=== PATIENT | female | born 1950 | race Asian ===

== ENCOUNTER 2024-06-05 15:06 | Inpatient (IN) | payer SELFPAY ==
[~2024-06-05] VITALS: Ht 162.6 cm; Wt 64.9 kg
[2024-06-05] MEDS ORDERED: TETANUS, DIPHTHERIA, PERTUSSIS VAC/PF 0.5ML (>10YR OLD) IM ONE (16:15)
[2024-06-05] MEDS: ACETAMINOPHEN 325MG TABLET PO STA (16:49)
[2024-06-05] MEDS: SODIUM CHLORIDE 0.9% 1,000 ML IV ONE (16:49)
[2024-06-05] MEDS: TETANUS, DIPHTHERIA, PERTUSSIS VAC/PF 0.5ML (>10YR OLD) IM ONE (16:49)
[2024-06-05 16:53] LABS: CHLORIDE 102 mEq/L (98-107); SODIUM 134 mEq/L (136-145)
[2024-06-05 16:54] LABS: CALCIUM 9.3 mg/dL (8.7-10.4); CARBON DIOXIDE 23 mEq/L (21-32)
[2024-06-05 16:59] LABS: CREATININE 0.7 mg/dL (0.6-1.0); GLUCOSE 160 mg/dL (70-105); TROPONIN I HIGH SENSITIVITY 4 ng/L (3.0-34); UREA NITROGEN BLOOD 7 mg/dL (9-23)
[2024-06-05 17:01] LABS: ALANINE AMINOTRANSFERASE 15 IU/L (10-49); ALBUMIN 4.5 g/dL (3.2-4.8); ASPARTATE AMINOTRANSFERASE 27 IU/L (<34); BASOPHILS % 0.4 % (0.0-2.0); BILIRUBIN TOTAL 0.5 mg/dL (0.1-1.0); EOSINOPHILS % 2.7 % (0.0-5.0); HEMATOCRIT. 43.6 % (36.0-48.0); HEMOGLOBIN. 14.3 g/dL (12.0-16.0); LYMPHOCYTES % 20.4 % (20.0-50.0); MEAN CORPUSCULAR HEMOGLOBIN 29.8 pg (28.0-32.0); MEAN CORPUSCULAR HGB CONC 32.8 g/dL (31.0-37.0); MEAN CORPUSCULAR VOLUME 90.8 fL (81.0-99.0); MEAN PLATELET VOLUME 6.8 fl (7.4-10.4); MONOCYTES % 6.2 % (2.0-8.0); NEUTROPHILS % 70.3 % (40.0-76.0); PLATELET 234 x1000/uL (130-400); RED CELL DISTRIBUTION WIDTH 13.8 % (11.6-14.6); WHITE BLOOD COUNT 7.3 x1000/uL (4.5-11.0)
[2024-06-05 17:02] LABS: PROTEIN TOTAL 7.5 g/dL (6.0-8.3)
[2024-06-05 17:03] LABS: PARTIAL THROMBOPLASTIN TIME 25.5 sec (23.4-31.0); PROTHROMBIN TIME 10.8 sec (9.6-11.0)
[2024-06-05 23:30] VITALS: BP 137/80; PULSE 119; RESP 18; TEMP 98.1
[2024-06-06 08:00] VITALS: BP 134/74; PULSE 103; RESP 18; TEMP 97.3
[2024-06-06] MEDS ORDERED: CLONIDINE 0.1MG TABLET PO PRN (11:00)
[2024-06-06] MEDS ORDERED: ACETAMINOPHEN 325MG TABLET PO PRN ×2 (11:00)
[2024-06-06] MEDS: ENOXAPARIN 40MG/0.4ML SYR SUBCUT SCH (11:00)
[2024-06-06] MEDS ORDERED: DOCUSATE SODIUM 100MG CAPSULE PO PRN (11:00)
[2024-06-06] MEDS ORDERED: ONDANSETRON HCL 4MG/2ML INJ IV PRN (11:00)
[2024-06-06 12:00] VITALS: BP 144/81; PULSE 98; RESP 18; TEMP 97.3
[2024-06-06] MEDS: MVI, ADULT NO.1 10 ML, FOLIC ACID 1 MG, THIAMINE HCL 100 MG in SODIUM CHLORIDE 0.9% 1,0... IV SCH (12:58)
[2024-06-06 16:00] VITALS: BP 126/66; PULSE 89; RESP 18; TEMP 97.3
[2024-06-06 20:00] VITALS: BP 120/67; PULSE 90; RESP 20; TEMP 97.7
[2024-06-07 04:00] VITALS: PULSE 77; RESP 20; TEMP 98.2
[2024-06-07 08:00] VITALS: BP 117/56; PULSE 82; RESP 17; TEMP 97.5
[2024-06-07 12:00] VITALS: BP_SYST 130; BP_SYST 140; BP_DIAS 70; BP_DIAS 73; PULSE 70; RESP 18; TEMP 97.4
[2024-06-07 13:45] VITALS: BP 140/73; PULSE 83; TEMP 98.7; O2SAT 98
== END 2024-06-07 17:05 | disposition home or self-care (01) | DRG 204 ==
LOC: ER 15:06 → 7EST 20:02
PROVIDERS: ADMIT Internal Medicine; ATTEND Internal Medicine
PROC: 0HQ1XZZ Repair Face Skin, External Approach (ICD-10-PCS; principal; 2024-06-05)
DX: R55 Syncope and collapse (principal); I10 Essential (primary) hypertension; I25.10 Atherosclerotic heart disease of native coronary artery without angina pectoris; S01.111A Laceration without foreign body of right eyelid and periocular area, initial encounter; I45.10 Unspecified right bundle-branch block; W01.0XXA Fall on same level from slipping, tripping and stumbling without subsequent striking against object, initial encounter; Y93.89 Activity, other specified; Y92.89 Other specified places as the place of occurrence of the external cause; Y99.8 Other external cause status
CPT/HCPCS: 36415; 70480; 70551; 71045; 80053; 83880; 84484; 85025; 90715; 93005; 93306; 99285; J1650; J3411; J3490; J7030